=== PATIENT | female | born 1980 | race Caucasian/White ===

== ENCOUNTER 2017-03-10 19:39 | Observation (INO) | payer MEDICAID ==
[~2017-03-10] VITALS: Ht 154.9 cm; Wt 66.2 kg
--- NOTE | 2017-03-10 23:56 | NUR ---
PATIENT ADMITTED WITH CHOLELITHIASIS. SHE STATES SHE WAS IN THE OFFICE WHEN SHE STARTED HAVING RIGHT LOWER QUADRANT PAIN THAT RADIATED TO HER LOWER BACK. SHE WAS SEEN BY [facility] WHERE THEY DID A CT. PATIENT ADMITTED FOR OBSERVATION. GENERAL SURGERY CONSULT FOR AM. FAMILY AT BEDSIDE. EDUCATED PATIENT ON USE OF CALL LIGHT.
--- NOTE | 2017-03-11 05:02 | NUR ---
A/O. HR 50-70s. SBP 100-120s. AFEBRILE. ROOM AIR. MORPHINE 2MG IVx1 FOR R) LOWER QUADRANT PAIN. D5NS AT 75ML/HR. UP AD LAXMI IN ROOM. NO BM. NO C/O NAUSEA. GENERAL SURGERY CONSULT THIS AM.
[2017-03-11 05:52] LABS: BASOPHIL # 0.1 K/uL (0.0-0.2); BASOPHIL % 0.7 %; EOSINOPHIL # 0.3 K/uL (0.0-0.5); EOSINOPHIL % 3.8 %; HEMATOCRIT 39.7 % (33.0-46.0); HEMOGLOBIN 13.2 g/dL (11.0-15.0); IMMATURE GRANULOCYTE % 0.1 %; LYMPHOCYTE # 3.5 K/uL (0.8-4.0); MCH 28.1 pg (27.0-34.0); MCHC 33.2 gm/dL (32.0-36.5); MCV 84.5 fl (83.0-98.0); MONOCYTE # 0.5 K/uL (0.0-1.0); MONOCYTE % 6.9 %; MPV 9.8 fl (9.4-12.4); NEUTROPHIL # (ANC) 2.5 K/uL (1.8-7.8); NEUTROPHIL % 37.5 %; NRBC % 0 /100WBC (0-0.00); PLATELET COUNT 288 K/uL (150-450); RDW-CV 12.7 % (11.9-14.6); WBC 6.8 K/uL (4.0-11.0)
[2017-03-11 06:09] LABS: ALBUMIN 3.4 gm/dL (3.5-5.0); ALK PHOS 71 IU/L (33-138); ALT 42 IU/L (12-78); AST 19 IU/L (10-40); BLOOD UREA NITROGEN 9 mg/dL (6-24); CALCIUM 8.5 mg/dL (8.5-10.5); CHLORIDE 109 mMol/L (96-110); CO2 28 mMol/L (22-32); CREATININE 0.8 mg/dL (0.5-1.1); ESTIMATED GFR (MDRD EQUATION) > 60; SODIUM 141 mMol/L (135-145); TOTAL BILIRUBIN 0.7 mg/dL (0.0-1.5)
[2017-03-11] MEDS ORDERED: PROVENTIL OR V6.7 GM INH (07:58)
[2017-03-11] MEDS ORDERED: TYLENOL EXTRA500 MG PO (07:58)
[2017-03-11] MEDS ORDERED: IBUPROFEN200 MG PO (07:58)
[2017-03-11] MEDS ORDERED: NORCO 5-325 TA1 EACH PO (12:23)
--- NOTE | 2017-03-11 12:50 | NUR ---
D/C ORDERS RECIEVED. REVIEWED WITH THE PATIENT ALL D/C INFORMATION INCLUDING MEDICATIONS, TO CALL FOR A F/U APPT WITH DR. BAILON ON MONDAY (CLINIC CLOSED AT TIME OF D/C AND SHE REQUESTS TO MAKE HER OWN APPT DUE TO WORK SCHEDULE), INSTRUCTIONS, AND CARES. JOSE CARLOS PRINTOUTS GIVEN ON NEW MED-NORCO AND ON LOW FAT DIET. PIV D/C'D AND CATHETER INTACT. REFUSED PNEUMONIA VACCINE AND PROPER DOCUMENTATION SIGNED. AMBULATED PER REQUEST TO THE FRONT ENTRANCE OF THE HOSPITAL AND HER FAMILY TO DRIVE HER HOME.
== END 2017-03-11 12:50 | disposition disaster alternative care site (69) ==
LOC: GRAD 19:39 → GPCU 20:56
PROVIDERS: ADMIT Obstetrics & Gynecology Obstetrics
DX: K80.70 Calculus of gallbladder and bile duct without cholecystitis without obstruction (principal); J45.909 Unspecified asthma, uncomplicated; Z98.51 Tubal ligation status; Z90.49 Acquired absence of other specified parts of digestive tract
CPT/HCPCS: G0378; G0379; J2270; J7042

== ENCOUNTER 2017-03-20 10:13 | Day surgery (SDC) | payer MEDICAID ==
[~2017-03-20] VITALS: Ht 154.9 cm; Wt 65.0 kg
--- NOTE | ~2017-03-20 | OR ---
PATIENT'S NAME: AMNOJ GUERRA [facility] AGE: 36 Y [address] ROOM: [place] [id number] LOCATION: [facility] [place] ADMIT DATE: 03/20/2017 OR/Procedure Report DISCHARGE DATE: FAMILY PHYSICIAN: Alejandro Joe MD ATTENDING PHYSICIAN: Keisha London SURGEON: Keisha London MD SECOND CLASS WELDER: Killian Laguerre PA-C. DATE OF PROCEDURE: 03/20/2017 PREOPERATIVE DIAGNOSIS: Cholelithiasis. POSTOPERATIVE DIAGNOSIS: Cholelithiasis with chronic cholecystitis. PROCEDURE PERFORMED: Laparoscopic cholecystectomy. ANESTHESIA: General endotracheal. ESTIMATED BLOOD LOSS: 50 mL. SPECIMEN: Gallbladder. REASON FOR PROCEDURE: The patient is a 36-year-old female who recently has been found to have severe right upper quadrant pain. An ultrasound showed cholelithiasis. Her white count and liver function tests were normal. She was continued to have some intermittent right upper quadrant pain. We discussed surgery as well as the risks and benefits, and she elected to proceed with cholecystectomy. FINDINGS: The patient had numerous moderate stones within the gallbladder. The cystic duct was normal in size. We did have a some bleeding from the cystic artery, but we were able to get this controlled with clips. PROCEDURE IN DETAIL: The patient was taken to the operating suite and placed in the supine position. After general endotracheal anesthesia was obtained, the abdomen was prepped with ChloraPrep and sterilely draped. Marcaine was infiltrated into the incision sites. A 2 cm transverse infraumbilical incision was made. The fascia was grasped and elevated, and a Veress needle was used to obtain a pneumoperitoneum. An 11 mm trocar was then passed across the abdominal wall. Next, the fundus of the gallbladder was grasped and elevated. A second grasper was placed on the infundibulum. We dissected through the neck area of the gallbladder exposing the cystic duct and cystic artery. These were individually stapled and divided. We did have some mild pulsatile bleeding from the cystic artery proximal to the clip. This provided a challenge momentarily, but eventually we were able to get a couple more proximal clips across the cystic artery and control this. We then mobilized PATIENT'S NAME: MANOJ GUERRA [facility] AGE: 36 Y [address] ROOM: [place], [place] [address] LOCATION: [facility] [place] ADMIT DATE: 03/20/2017 OR/Procedure Report DISCHARGE DATE: FAMILY PHYSICIAN: Alejandro Joe MD ATTENDING PHYSICIAN: Keisha London the gallbladder free of the liver bed. Once fully mobilized, the gallbladder was removed from the umbilicus. There were numerous stones within the gallbladder. The right upper quadrant was inspected. It was irrigated and all blood was removed. There was no signs of any ongoing bleeding or bile leak. The surgical clips were in place. The abdomen was scanned. No other abnormalities were seen. The trocars were all withdrawn, and the pneumoperitoneum was evacuated. The fascia at the umbilicus was closed with a Vicryl suture. The skin incisions were all closed with subcuticular Monocryls. Benzoin, Steri-Strips, and gauze dressings were applied. POSTPROCEDURE PLAN: The patient will be discharged home when awake and alert. She is given a prescription for [place] for pain control. We will see her back in the office in a couple weeks for recheck. She is to call sooner if any major problems. KEISHA LONDON MD JTM/modl /[id number] CC: Alejandro Joe MD d: 03/23/17 2226 t: 03/27/17 1041, OPERATIVE SUMMARY
[~2017-03-20 10:13] MED LIST: IBUPROFEN200 MG PO; NORCO 5-325 TA1 EACH PO; PROVENTIL OR V6.7 GM INH; TYLENOL EXTRA500 MG PO
== END 2017-03-20 15:33 | disposition disaster alternative care site (69) ==
LOC: GSDC 10:13
PROC: 0FT44ZZ Resection of Gallbladder, Percutaneous Endoscopic Approach (ICD-10-PCS; principal; 2017-03-20)
DX: K80.10 Calculus of gallbladder with chronic cholecystitis without obstruction (principal); J45.909 Unspecified asthma, uncomplicated; Z87.442 Personal history of urinary calculi; Z98.51 Tubal ligation status; Z90.49 Acquired absence of other specified parts of digestive tract
CPT/HCPCS: J0694; J1100; J2250; J2405; J7120